=== PATIENT | female | born 1985 | race Caucasian/White ===

== ENCOUNTER 2021-03-06 20:48 | Emergency (ER) | payer OTHER ==
[~2021-03-06] VITALS: Ht 160 cm; Wt 88.5 kg
[~2021-03-06 20:48] MED LIST: ALLEGRA30 MG; AMOXICILLIN875 MG PO; NORCO 5-325 TA1 EACH PO; TRAMADOL 50 MG50 MG; VENTOLIN17 GM INH
[2021-03-06] MEDS ORDERED: SINGULAIR 10 MG10 MG PO (20:59)
[2021-03-06] MEDS ORDERED: FLONASE 0.05%50 MCG NARES (21:00)
[2021-03-06] MEDS ORDERED: LEXAPRO20 MG PO (21:00)
[2021-03-06 21:45] VITALS: BP 139/76
== END 2021-03-06 21:45 | disposition home or self-care (01) ==
LOC: M.ERS 20:48
DX: S67.193A Crushing injury of left middle finger, initial encounter (principal); Z90.89 Acquired absence of other organs; Z88.5 Allergy status to narcotic agent; Z79.899 Other long term (current) drug therapy; Z90.49 Acquired absence of other specified parts of digestive tract; W22.8XXA Striking against or struck by other objects, initial encounter; Y93.89 Activity, other specified; Y92.89 Other specified places as the place of occurrence of the external cause; Y99.8 Other external cause status